=== PATIENT | female | born 1985 | race Two or more races ===

== ENCOUNTER 2024-04-10 12:37 | Emergency (ER) | payer MEDICAID, OTHER ==
[~2024-04-10] VITALS: Ht 160 cm; Wt 116.5 kg
[2024-04-10 12:57] VITALS: BP 126/85; PULSE 98; RESP 15; O2SAT 96
== END 2024-04-10 16:36 | disposition left against medical advice (07) ==
LOC: ER 12:37
DX: M79.672 Pain in left foot (principal); Z53.21 Procedure and treatment not carried out due to patient leaving prior to being seen by health care provider